=== PATIENT | male | born 1980 | race Caucasian/White ===

== ENCOUNTER 2016-04-20 16:27 | Emergency (ER) | payer OTHER ==
[~2016-04-20] VITALS: Ht 167.6 cm; Wt 90.5 kg
[2016-04-20] MEDS ORDERED: HYDROCODONE/ACETAMINOPHEN 5-325 MG TABLET PO ONE (18:30)
[2016-04-20] MEDS ORDERED: CefTRIAXone SODIUM 1 GM/VIAL IM ONE (18:30)
[2016-04-20] MEDS ORDERED: PERTUSS(ACELL),DIPH,TET VAC/PF 0.5 ML VIAL IM ONE (18:30)
[2016-04-20] MEDS ORDERED: LIDOCAINE HCL/PF 1% 2 ML VIAL IM ONE (18:30)
[2016-04-20] MEDS ORDERED: LIDOCAINE HCL BUFFERED 1% W/EPI 1:100,000 20 ML VIAL INJ ONE (19:15)
[2016-04-20 21:04] VITALS: BP 117/71
== END 2016-04-20 21:06 | disposition home or self-care (01) ==
LOC: EMS 16:30
DX: S91.011A Laceration without foreign body, right ankle, initial encounter (principal); W54.0XXA Bitten by dog, initial encounter; Y93.89 Activity, other specified; Y92.89 Other specified places as the place of occurrence of the external cause; Y99.8 Other external cause status
CPT/HCPCS: 12006; 73610; 90471; 90715; 96372; 99284; J0696; J3490 ×2